=== PATIENT | female | born 1985 | race Two or more races ===

== ENCOUNTER 2016-12-07 14:47 | Emergency (ER) | payer OTHER ==
[~2016-12-07] VITALS: Ht 152.4 cm; Wt 46.4 kg
[~2016-12-07 14:47] MED LIST: AMBIEN CR6.25 MG PO; ATARAX10 MG PO; Ascorbic Acid PO; BUSPAR15 MG PO; LO LOESTRIN FE1 EACH PO; Motrin PO; NORCO 5/3251 TABLET PO; PROMETHAZINE HC25 M1 PO; PROZAC20 MG PO; ULTRAM50 MG PO; ZOFRAN ODT8 MG PO
[2016-12-07 16:35] LABS: HEMATOCRIT 44.2 % (36.0-46.0); MCH 31.2 PG (29.0-34.0); MCHC 34.6 G/DL (30.0-36.0); MCV 90.2 FL (83-99); MEAN PLAT.VOLUME 9.4 uM^3 (9.5-12.4); PLATELET COUNT 307 K/uL (156-360); RBC DIS.WIDTH-CV 12.4 % (11.8-14.6); RBC DIS.WIDTH-SD 41.2 % (39-53); WHITE BLOOD COUNT 11.5 K/uL (4.1-10.2)
[2016-12-07 16:45] LABS: CHLORIDE 102 mEq/L (99-109); POTASSIUM 3.8 mEq/L (3.7-5.4); SODIUM 140 mEq/L (136-147)
[2016-12-07 16:47] LABS: GLUCOSE 105 mg/dL (70-99)
[2016-12-07 16:48] LABS: ANION GAP 18 MEQ/L (2-14)
[2016-12-07 16:49] LABS: TOTAL BILIRUBIN 0.7 mg/dL (0.0-1.0)
[2016-12-07 16:50] LABS: ALKALINE PHOSPHATASE 72 IU/L (3-129); GFR ESTIMATE (CALCULATED) > 59 mL/min/
[2016-12-07 16:52] LABS: UREA NITROGEN (BUN) 15 mg/dL (9-23)
[2016-12-07 16:59] LABS: QUANTITATIVE HCG < 4.0 MIU/ML
[2016-12-07 18:24] LABS: ADD MIUA? YES; BILIRUBIN SMALL; BLOOD NEGATIVE; COLOR AMBER ((YELLOW)); GLUCOSE (STRIP) NEGATIVE; KETONES 80; LEUKOCYTES NEGATIVE; NITRITE NEGATIVE; PROTEIN (STRIP) 100; SPECIFIC GRAVITY 1.036 (1.000-1.030); UROBILINOGEN 0.2 MG/DL (0.2-1.0)
[2016-12-07 19:25] LABS: BACTERIA RARE /HPF; EPITHELIAL CELLS RARE /HPF; MUCUS 4+ /LPF; RED BLOOD CELLS 0-5 /HPF (0-5); UCUL ADDED? NO; WHITE BLOOD CELLS 0-5 /HPF (0-5)
[2016-12-07] MEDS ORDERED: PROMETHAZINE HC25 M1 PO (20:18)
[2016-12-07] MEDS ORDERED: BENTYL10 MG PO (20:20)
[2016-12-07 21:35] VITALS: BP 147/82
[2016-12-09 11:37] LABS: CHLAMYDIA TRACHOMATIS NEGATIVE; NEISSERIA GONORRHOEAE NEGATIVE
== END 2016-12-07 21:38 | disposition home or self-care (01) ==
LOC: EME 14:47 → RME 14:47
PROVIDERS: Physician Assistant
DX: R11.2 Nausea with vomiting, unspecified (principal); R19.7 Diarrhea, unspecified; R10.9 Unspecified abdominal pain; F32.9 Major depressive disorder, single episode, unspecified; G43.909 Migraine, unspecified, not intractable, without status migrainosus; F17.200 Nicotine dependence, unspecified, uncomplicated
CPT/HCPCS: 74176; 80053; 81003; 84702; 85027; 87210; 87491; 87591; 99281; 99284; J2270; J2405; Q0169